=== PATIENT | male | born 1990 | race Caucasian/White ===

== ENCOUNTER 2020-07-05 09:48 | Outpatient (REF) | payer SELFPAY ==
[2020-07-05 13:35] LABS: HCT 45.9 % (40.0-50.0); HGB 15.5 g/dL (13.5-17.5); MCH 29.1 pg (27.0-33.0); MCHC 33.8 % (32.0-36.0); MCV 86.1 fL (80-95); MPV 10.6 fL (8.0-11.0); Platelet Count 286 10^3/uL (130-400); RBC 5.33 10^6/uL (4.36-5.78); RDW 12.8 % (11.8-14.1); RDW-SD 39.8 fL; WBC 8.26 10^3/uL (4.4-10.8)
[2020-07-05 14:12] LABS: ALT 22 U/L (16-63); AST 12 U/L (15-37); Albumin 3.9 g/dL (3.4-5.0); Alkaline Phosphatase 72 U/L (46-116); Anion Gap 7.1 mmol/L (3-11); BUN 10 mg/dL (7-18); Bilirubin, Total 0.6 mg/dL (0.2-1.0); CO2 29.9 mmol/L (21.0-32.0); Calcium 9.2 mg/dL (8.5-10.1); Chloride 104 mmol/L (98-107); Glucose 88 mg/dL (74-106); Potassium 4.6 mmol/L (3.5-5.1); Sodium 141 mmol/L (136-145); TSH (W/Ref FT4) 1.03 uIU/mL (0.36-3.74); Total Protein 7.1 g/dL (6.4-8.2)
[2020-07-06 09:38] LABS: HIV-1/2 Ag & Ab Screen Negative (Negative)
[2020-07-06 10:59] LABS: Hepatitis C Ab w Rflx HCV PCR Negative (Negative)
[2020-07-07 07:21] LABS: Chlamydia Result Negative (Negative); GC Result Negative (Negative)
== END 2020-07-05 09:49 | disposition home or self-care (01) ==
LOC: NCHCN 09:48
PROVIDERS: PCP Internal Medicine; Visit Provider Family Medicine
DX: Z11.3 Encounter for screening for infections with a predominantly sexual mode of transmission (principal); Z11.4 Encounter for screening for human immunodeficiency virus [HIV]; Z11.59 Encounter for screening for other viral diseases; F32.9 Major depressive disorder, single episode, unspecified; M54.5 Low back pain
CPT/HCPCS: 80053; 85027; 86803; 87389; 87491; 87591; 84443

== ENCOUNTER → 2020-07-11 01:47 | Outpatient (CLI) | payer SELFPAY ==
--- NOTE | 2020-07-11 08:00 | DI.RAD_ITS ---
EXAM: XR LUMBAR SPINE COMPLETE CLINICAL HISTORY: CHRONIC LOW BACK PAIN,M54.5. TECHNIQUE: 2D digital imaging was performed. COMPARISON: No exams were available for comparison FINDINGS: BONES: No fracture or destructive lesion. Vertebral bodies are unremarkable. No facet hypertrophy hannah ntified. DISKS: Intervertebral disc spaces are maintained. ALIGNMENT: Lumbar spinal alignment is within normal limits. There is a mild left convex curvature of the lumbar spine which may be positional. SOFT TISSUE: Normal. IMPRESSION: Unremarkable radiographs of the lumbar spine. DATA REPOSITORY: RADIATION DOSE DELIVERED:
== END ==
PROVIDERS: PCP Internal Medicine; Visit Provider Family Medicine
DX: M54.5 Low back pain (principal)
CPT/HCPCS: 72110

== ENCOUNTER 2023-03-12 12:17 | Emergency (ER) | payer SELFPAY ==
[2023-03-12 12:21] VITALS: BP 168/98; PULSE 76; RESP 18; TEMP 35.9; O2SAT 98
[2023-03-12 12:34] VITALS: BP 168/98; PULSE 76; RESP 18; O2SAT 98
--- NOTE | 2023-03-12 12:42 | ED.GENADUL_ITS ---
Discharge Plan Disposition Patient Disposition: Home Condition: Improving Discharge Details Clinical Impression: Pain, dental Primary Care Provider: Hany Cooper ED Provider: Scott Cardona Home Meds and New Rx's Prescriptions: New amoxicillin-pot clavulanate 875-125 mg tablet 1 tab PO BID 7 Days Qty: 14 0RF Discharge Instructions Instructions: Toothache (ED) Additional Instructions: Please follow-up closely with dentist. Please return to the emergency department for any worsening symptoms. Medical Decision Making 32-year-old male presents with several days of left upper and left lower molar discomfort, multiple areas of dental caries, no evidence of deep space infection of head or neck. We will start with empiric Augmentin, Toradol, home care instructions and return precautions given. Patient will seek dental follow-up. HPI General Date/Time Provider Initiated Documentation: 03/12/23 12:39 . HPI Narrative: 32-year-old male presents with left upper left lower molar discomfort for past several days. Related Data Home Medications Medication Instructions Recorded Confirmed amoxicillin 875 mg-potassium 1 tab PO BID 7 days #14 tabs 03/12/23 clavulanate 125 mg tablet Previous Rx's Medication Instructions Recorded amoxicillin 875 mg-potassium 1 tab PO BID 7 days #14 tabs 03/12/23 clavulanate 125 mg tablet Allergies Allergy/AdvReac Type Severity Reaction Status Date / Time No Known Allergies Allergy Unverified 03/12/23 12:24 General Stated Complaint: DentalOral MCKENNA: 4 Review of Systems Narrative: Review of Systems Constitutional: negative Eyes: negative ENT: Dental pain Cardiovascular: negative Respiratory: negative Gastrointestinal: negative : negative Musculoskeletal: negative Skin: negative Neurologic: negative Psych: negative PFSH All Active Problems (Updated 03/12/23 @ 13:05 by Scott Cardona MD) Pain, dental (Acute) Social History Smoking/Tobacco Use Status: Current every day Smoking risk assessment performed?: Yes Alcohol Intake: current Alcohol Intake frequency: holidays/special occasions only Drug use: Binges Substance use type: marijuana Housing: homeless Do you feel safe at home: Yes Do you feel safe in your relationship?: Yes Exam Narrative Exam Narrative: Dental: Multiple caries upper and lower left molars, no periapical abscess, no induration to sublingual submental or submandibular region; normal voice tolerating secretions Course Vital Signs Vital signs: Vital Signs Temperature 35.9 C L 12/05/23 12:21 Pulse 76 03/12/23 12:21 Respiratory Rate 18 03/12/23 12:21 Blood Pressure 168/98 H 03/12/23 12:21 Pulse Oximetry 98 03/12/23 12:21 Temperature 35.9 C L 03/12/23 12:21 Temperature Source Temporal Artery Scan 03/12/23 12:21 Pulse 76 03/12/23 12:34 Respiratory Rate 18 03/12/23 12:34 Respiratory Effort Normal, Non-Labored 03/12/23 12:25 Blood Pressure 168/98 H 03/12/23 12:34 Blood Pressure Position Sitting 03/12/23 12:34 Pulse Oximetry 98 03/12/23 12:34 Oxygen Delivery Method Room Air 03/12/23 12:34 Oxygen Flow Rate 0 03/12/23 12:21 Pain Level 8 03/12/23 12:34 PAWSS Have you Been Recently Intoxicated or Drunk Within the Last 30 days?: No Have you Ever Experienced Previous Episodes of Alcohol Withdrawal?: No Have you ever Experienced Withdrawal Seizures?: No Have you ever Experienced Delirium Tremens(DT)s?: No Have you ever undergone Alcohol Rehabilitation Treatment (i.e, inpt ot outpatient treatment programs)?: Yes Have you ever Experienced Blackouts?: No Have you ever Combined Alcohol with other Downers within the last 90 days?: No Have you ever Combined Alcohol with any other Substance of Abuse during the last 90 days?: No Positive Blood Alcohol level on Presentation? [PCS.BAL]: No Evidence of Increased Autonomic Activity (i.e. HR>120, tremor, sweating, agitation, nausea)?: No Result: 1
[2023-03-12] MEDS: Amoxicillin 875/Clav. 125 TAB PO (12:44)
[2023-03-12] MEDS: Ketorolac 15 MG/ML VIAL IM (12:44)
== END 2023-03-12 13:26 | disposition home or self-care (01) ==
PROVIDERS: Emergency Provider Emergency Medicine; PCP Internal Medicine
DX: K08.89 Other specified disorders of teeth and supporting structures (principal); F17.210 Nicotine dependence, cigarettes, uncomplicated
CPT/HCPCS: 96372; 99282; J1885

== ENCOUNTER 2023-08-26 20:44 | Emergency (ER) | payer SELFPAY ==
[2023-08-26 20:55] VITALS: BP 129/73; PULSE 73; RESP 15; TEMP 37.5; O2SAT 99
[2023-08-26] MEDS: Penicillin V POTASSIUM 500 MG TAB, 4 TABS/BTL PO (21:24)
[2023-08-26] MEDS: Benzocaine 20% Gel 30 GM JAR MM (21:32)
[2023-08-26] MEDS: Bupivacaine 0.5% Pres-Free 30 ML VIAL (21:32)
--- NOTE | 2023-08-29 08:09 | ED.GENADUL_ITS ---
Discharge Plan Disposition Patient Disposition: Home Condition: Stable Discharge Details Clinical Impression: Abscess, dental Primary Care Provider: Hany Cooper ED Provider: Araceli Maldonado Home Meds and New Rx's Prescriptions: New penicillin V potassium 500 mg tablet 500 mg PO QID Qty: 40 0RF Discharge Instructions Instructions: Dental Abscess (ED) Additional Instructions: Take the penicillin as prescribed, yogurt daily while on antibiotic Ibuprofen and Tylenol as needed for pain You may apply the HurriCaine gel, you can use this every 6 hours, apply a light layer over the area of tenderness Return earlier should you have new or worsening complaints includingsignificant swelling, difficulty swallowing Please follow-up with your dentist Referrals: Hany Cooper MD [Primary Care Provider] - Discharge Data Discharge Date/Time-TO BE ENTERED AT DEPARTURE: 08/26/23 22:37 HPI General Date/Time Provider Initiated Documentation: 08/26/23 21:28 . HPI Narrative: This 33-year-old male presents with unsure if she pain in his right lower jaw. He thinks he has a fractured teeth. He has followed up with his dentist in the past regarding this tooth states has never been on antibiotics before. Is been for the past 4 days. Denies any shortness of breath difficulty swallowing, fever or chills. Related Data Home Medications Medication Instructions Recorded Confirmed penicillin V potassium 500 mg 500 mg PO QID #40 tabs 08/26/23 tablet Previous Rx's Medication Instructions Recorded penicillin V potassium 500 mg 500 mg PO QID #40 tabs 08/26/23 tablet Allergies Allergy/AdvReac Type Severity Reaction Status Date / Time No Known Allergies Allergy Unverified 03/12/23 12:24 General Stated Complaint: DentalOral MCKENNA: 4 Course Vital Signs Vital signs: Vital Signs Temperature 37.5 C 08/26/23 20:55 Pulse 73 08/26/23 20:55 Respiratory Rate 15 08/26/23 20:55 Blood Pressure 129/73 08/26/23 20:55 Pulse Oximetry 99 08/26/23 20:55 Temperature 37.5 C 08/26/23 20:55 Temperature Source Tympanic 08/26/23 20:55 Pulse 73 08/26/23 20:55 Respiratory Rate 15 08/26/23 20:55 Blood Pressure 129/73 08/26/23 20:55 Blood Pressure Position Sitting 08/26/23 20:55 Pulse Oximetry 99 08/26/23 20:55 Oxygen Delivery Method Room Air 08/26/23 20:55 Oxygen Flow Rate 0 08/26/23 20:55 Procedures Nerve Block Nerve Block 1: Time out performed: Yes Local Anesthetic: Bupivicaine 0.5% Amount of anesthesia used (mL): 2 Intraoral Nerve Block: inferior alveolar Procedure Successful: Yes Patient Tolerated Procedure: well Complications: none Medical Decision Making This 33-year-old male presenting with right lower dental pain. No trismus appreciated on exam. Right lower molar involved. No evidence of deep space infection. Or thank you uvula midline, oropharynx patent, no drooling. Inferior alveolar nerve block performed with good effect. Placed on penicillin and referred back to dentist. No submandibular lymphadenopathy. Quality:SDOH Health Related Social Needs: No Data to Display [facility] All Active Problems (Updated 08/26/23 @ 21:48 by MILLICENT Chaney) Abscess, dental (Acute) Social History Smoking/Tobacco Use Status: Current every day Smoking risk assessment performed?: Yes Alcohol Intake: current Alcohol Intake frequency: holidays/special occasions only Drug use: Binges Substance use type: marijuana Housing: homeless Do you feel safe at home: Yes Do you feel safe in your relationship?: Yes
== END 2023-08-26 22:37 | disposition home or self-care (01) ==
PROVIDERS: Emergency Provider Physician Assistant; PCP Internal Medicine
DX: K04.7 Periapical abscess without sinus; F17.210 Nicotine dependence, cigarettes, uncomplicated
CPT/HCPCS: 99283; J0665

== ENCOUNTER 2024-03-13 17:48 | Emergency (ER) | payer SELFPAY ==
[2024-03-13 17:55] VITALS: BP 154/65; PULSE 72; RESP 12; TEMP 36.6; O2SAT 98
--- NOTE | 2024-03-13 18:38 | W.ED.GENAD ---
Discharge Plan Disposition Patient Disposition: Home Condition: Good Discharge Details Clinical Impression: Cyst of skin Primary Care Provider: Joseph Morse ED Provider: Leanne Dhaliwal Home Meds and New Rx's Prescriptions: No Action No Known Home Meds Discharge Instructions Instructions: Ganglion cyst, Epidermal Cyst Additional Instructions: Follow up with your primary care doctor- a referral has been sent and they should call you to schedule an appointment. You can also reach out to anyone on the list you were given. Return to the emergency department for new or worsening symptoms including new/different/worse pain, redness, fever, difficulty walking, or if you have any other concerns. Referrals: Joseph Morse MD [Primary Care Provider] - [facility] General Mode of arrival: ambulatory. Date/Time Provider Initiated Documentation: 03/13/24 17:57. Limitations to Documentation: no limitations. Information obtained by: patient. HPI Narrative: 33yo previously healthy male presenting with lump on left knee for several years, slowly getting larger. Over the past few weeks has become somewhat tender, is uncomfortable when he moves his knee. No warmth or drainage. Does not recall any injury tot he area but he spend a lot of time kneeling. No numbness, tingling, or weakness in his LLE. Otherwise in his usual state of health with no fevers, chills, rash, nausea, vomiting, shortness of breath, or other concerns. Does not have a PCP. Related Data Home Medications ?Medication ?Instructions ?Recorded ?Confirmed Unknown [No Known Home Meds] 03/13/24 03/13/24 Allergies Allergy/AdvReac Type Severity Reaction Status Date / Time No Known Allergies Allergy Unverified 03/13/24 17:59 General Stated Complaint: Orthopedic MCKENNA: 4 Review of Systems Narrative: see HPI Exam Narrative Exam Narrative: General: Alert, well appearing, well nourished, in no acute distress. Head: Normocephalic, atraumatic Neck: Trachea midline, ?Neck supple. ENT: ?MMM.? No oropharygeal lesions or exudate. Cardiac: ?RRR, no murmurs appreciated Resp: No respiratory distress. CTAB. Abd: ?Soft, non-distended, nontender : ?No suprapubic tenderness. No CVA tenderness. Extremities: ?No deformities.? No peripheral edema. ~2cm diameter mass on anterior puckett below left knee, no fluctuatance or erythema, minimally tender. Neurologic: GCS 15. ? Moves all extremities freely against gravity Course Vital Signs Vital signs: Vital Signs Temperature 36.6 C 03/13/24 17:55 Pulse 72 03/13/24 17:55 Respiratory Rate 12 03/13/24 17:55 Blood Pressure 154/65 H 03/13/24 17:55 Pulse Oximetry 98 03/13/24 17:55 Temperature 36.6 C 03/13/24 17:55 Temperature Source Oral 03/13/24 17:55 Pulse 72 03/13/24 17:55 Respiratory Rate 12 03/13/24 17:55 Respiratory Effort Normal, Non-Labored 03/13/24 18:22 Blood Pressure 154/65 H 03/13/24 17:55 Blood Pressure Position Sitting 03/13/24 17:55 Pulse Oximetry 98 03/13/24 17:55 Oxygen Delivery Method Room Air 03/13/24 17:55 Oxygen Flow Rate 0 03/13/24 17:55 Pain Level 3 03/13/24 18:19 Medical Decision Making 33yo previously healthy male presenting with lump on left knee for several years, slowly getting larger., over the past few weeks has become somewhat tender, is uncomfortable when he moves his knee. No numbness or tingling. No clear injury to the area. Systemically well. Vital signs reasuring on arrival, on exam he has a mobile, slightly tender, ~2cm mass on his left puckett below the knee. Not concerning for abscess, joint effusion, septic joint, cellulitis. Would not get labs or XR/US at this time. May be epidermoid, sebaceous, or ganglion cyst. As it has become more bothersome lately, may benefit from excision on a non-emergent basis. Pt does not have a PCP, will send referral for PCP and advised he followup with them to establish care and to further evaluate cyst. Discharged home; discharge instructions and return precautions were reviewed with patient who verbalized understanding. All questions were answered and he is in full agreement with the plan. Quality:SDOH Health Related Social Needs: No Data to Display PFSH All Active Problems (Updated 03/13/24 @ 18:46 by Leanne Dhaliwal MD) Cyst of skin (Acute) Social History Smoking/Tobacco Use Status: Current every day Smoking risk assessment performed?: Yes Alcohol Intake: current Alcohol Intake frequency: holidays/special occasions only Drug use: Binges Substance use type: marijuana Housing: homeless Do you feel safe at home: Yes Do you feel safe in your relationship?: Yes
[2024-03-13 18:52] VITALS: BP 117/74; PULSE 61; RESP 16; O2SAT 96
== END 2024-03-13 18:54 | disposition home or self-care (01) ==
PROVIDERS: Emergency Provider Student in an Organized Health Care Education/Training Program; PCP Family Medicine
DX: L72.9 Follicular cyst of the skin and subcutaneous tissue, unspecified (principal); F17.200 Nicotine dependence, unspecified, uncomplicated
CPT/HCPCS: 99282; 99283

== ENCOUNTER 2024-11-01 11:03 | Emergency (ER) | payer SELFPAY ==
[2024-11-01 11:10] VITALS: BP 126/69; PULSE 82; RESP 16; TEMP 36.1; O2SAT 98
--- NOTE | 2024-11-01 12:55 | W.ED.GENAD ---
Discharge Plan Disposition Patient Disposition: Home Condition: Stable Discharge Details Clinical Impression: Dental infection Primary Care Provider: Joseph Morse ED Provider: Eliazar Rico Home Meds and New Rx's Prescriptions: New amoxicillin-pot clavulanate 875-125 mg tablet 1 tab PO BID Qty: 14 0RF Discharge Instructions Additional Instructions: You can take 1000 mg of acetaminophen and 600 mg of ibuprofen every 6 hours as needed. Follow-up with a dentist. If you feel more ill or have new symptoms such as high fevers or inability swallow liquids return to emergency department for reevaluation. HPI General Mode of arrival: ambulatory. Date/Time Provider Initiated Documentation: 11/01/24 11:06. Limitations to Documentation: no limitations. Information obtained by: patient. History of Present Illness 34 year old M presents to the emergency department with the chief complaint of dental pain, Quality is described as aching, Patient started experiencing this day(s) (1) and it has been constant. No relieving factors improve symptom(s), No exacerbating factors reported . Patient notes no other symptoms.. Patient did receive the following treatments prior to arrival, none Related Data Home Medications ?Medication ?Instructions ?Recorded ?Confirmed amoxicillin 875 mg-potassium 1 tab PO BID #14 tabs 11/01/24 clavulanate 125 mg tablet Previous Rx's ?Medication ?Instructions ?Recorded amoxicillin 875 mg-potassium 1 tab PO BID #14 tabs 11/01/24 clavulanate 125 mg tablet Allergies Allergy/AdvReac Type Severity Reaction Status Date / Time No Known Allergies Allergy Unverified 11/01/24 11:14 General Stated Complaint: DentalOral MCKENNA: 3 Review of Systems All systems reviewed & are unremarkable except as noted in HPI and below Constitutional Constitutional: Denies chills, Denies fever(s) and Denies weakness ENT Ears, Nose, Mouth, and Throat: Reports dental pain Cardiovascular Cardiovascular: Denies dyspnea Respiratory Respiratory: Denies cough and Denies dyspnea Gastrointestinal Gastrointestinal: Denies abdominal pain, Denies nausea and Denies vomiting Neurologic Neurologic: Denies weakness Exam Const General: no acute distress Orientation: alert HENCO Head: normal to inspection Ears: external ears normal General nose exam: external nose normal Mouth: moist mucous membranes Throat: uvula midline Eyes General: appearance normal, both eyes and all related structures Neck Neck: normal visual inspection Resp Effort & Inspection: normal respiratory effort and able to speak in complete sentences Cardio Rate: regular rate Skin General skin exam: no rashes or lesions noted Neuro General: patient alert and patient oriented x3 Extrem General: normal to inspection Psych Mental Status: mental status grossly normal Course Vital Signs Vital signs: Vital Signs Temperature 36.1 C L 11/01/24 11:10 Pulse 82 11/01/24 11:10 Respiratory Rate 16 11/01/24 11:10 Blood Pressure 126/69 11/01/24 11:10 Pulse Oximetry 98 11/01/24 11:10 Temperature 36.1 C L 11/01/24 11:10 Temperature Source Oral 11/01/24 11:10 Pulse 82 11/01/24 11:10 Respiratory Rate 16 11/01/24 11:10 Blood Pressure 126/69 11/01/24 11:10 Pulse Oximetry 98 11/01/24 11:10 Oxygen Delivery Method Room Air 11/01/24 11:10 Oxygen Flow Rate 0 11/01/24 11:10 Pain Level 2 11/01/24 11:10 Medical Decision Making 34-year-old male who denies any chronic medical problems comes in with a broken tooth on the right upper molars and states has had some discomfort and today felt his gums were swollen. Denies any fevers or chills and otherwise feels well. He is speaking full sentences without stridor or drooling. He has numerous dental caries, the right upper anterior molar is eroded and is tender to palpation, there is no visible abscess. He has no submandibular swelling. I suspect pulpitis, will start him on Augmentin and advised to follow-up with his PCP, return precautions given PFSH All Active Problems (Updated 11/01/24 @ 12:59 by Eliazar Rico MD) Dental infection (Acute) Social History Smoking/Tobacco Use Status: Current every day Tobacco Type: cigarettes Smoking risk assessment performed?: Yes Alcohol Intake: current Alcohol Intake frequency: holidays/special occasions only Alcohol type: beer Drug use: Binges Substance use type: marijuana Housing: homeless Do you feel safe at home: Yes Do you feel safe in your relationship?: Yes PAWSS Have you Been Recently Intoxicated or Drunk Within the Last 30 days?: No Have you Ever Experienced Previous Episodes of Alcohol Withdrawal?: No Have you ever Experienced Withdrawal Seizures?: No Have you ever Experienced Delirium Tremens(DT)s?: No Have you ever undergone Alcohol Rehabilitation Treatment (i.e, inpt ot outpatient treatment programs)?: No Have you ever Experienced Blackouts?: No Have you ever Combined Alcohol with other Downers within the last 90 days?: No Have you ever Combined Alcohol with any other Substance of Abuse during the last 90 days?: No Positive Blood Alcohol level on Presentation? [PCS.BAL]: No Evidence of Increased Autonomic Activity (i.e. HR>120, tremor, sweating, agitation, nausea)?: No Result: 0
[2024-11-01] MEDS: Amoxicillin 875/Clav. 125 TAB PO (13:05)
[2024-11-01 13:10] VITALS: BP 126/69; PULSE 82; RESP 16; TEMP 36.1; O2SAT 98
== END 2024-11-01 13:08 | disposition home or self-care (01) ==
PROVIDERS: Emergency Provider Emergency Medicine; PCP Family Medicine
DX: K04.7 Periapical abscess without sinus (principal); F17.210 Nicotine dependence, cigarettes, uncomplicated
CPT/HCPCS: 99283